=== PATIENT | male | born 1965 | race African-American/Black ===

== ENCOUNTER 2017-12-15 20:55 | Inpatient (IN) | payer OTHER ==
[2017-12-15] MEDS ORDERED: MELATONIN 5 MG TABLETS PO PRN (22:00)
[2017-12-15 22:47] VITALS: BMI 23.3
--- NOTE | 2017-12-15 23:09 | HP ---
CIWA Score - CIWA Score Nausea/Vomitin Muscle Tremors: 4-Moderate,w/Arms Extend Anxiety: 3 Agitation: 3 Paroxysmal Sweats: 1-Minimal Palms Moist Orientation: 1-Uncertain about Date Tacttile Disturbances: 0-None Auditory Disturbances: 0-None Visual Disturbances: 0-None Headache: 2-Mild CIWA-Ar Total Score: 17 Admission ROS S - HPI Chief Complaint: Alcohol withdrawal symptoms Allergies/Adverse Reactions: Allergies Allergy/AdvReac Type Severity Reaction Status Date / Time No Known Allergies Allergy Verified 12/15/17 22:50 History of Present Illness: 52 years old male with 30 years of alcohol dependence is seeking admission to detox. Patient has been to previous detox at [facility] and reports 4 years of sobriety. He has medical history of Pancreatic cancer, HTN, seizures, hypercholesterolemia and depression. He denies suicidal ideation at this time. Exam Limitations: No Limitations - Ebola screening Have you traveled outside of the country in the last 21 days: No Have you had contact with anyone from an Ebola affected area: No Have you been sick,other than usual withdrawal symptoms: No Do you have a fever: No - Review of Systems Constitutional: Chills, Loss of Appetite, Malaise, Night Sweats, Changes in sleep, Weakness EENT: reports: No Symptoms Reported Respiratory: reports: No Symptoms reported Cardiac: reports: No Symptoms Reported GI: reports: Nausea, Poor Appetite, Poor Fluid Intake, Vomiting, Abdominal cramping : reports: No Symptoms Reported Musculoskeletal: reports: Back Pain Integumentary: reports: Dryness, Flushing Neuro: reports: Tingling, Tremors Endocrine: reports: No Symptoms Reported Hematology: reports: No Symptoms Reported Psychiatric: reports: Mood/Affect Appropiate, Anxious Other Systems: Reviewed and Negative Patient History - Patient Medical History Hx Anemia: No Hx Asthma: No Hx Chronic Obstructive Pulmonary Disease (COPD): No Hx Cancer: Yes (Pancreatic Cancer - Not on medication) Hx Cardiac Disorders: No Hx Congestive Heart Failure: No Hx Hypertension: Yes (Diovan ) Hx Hypercholesterolemia: Yes (Not on medication) HX Cerebrovascular Accident: No Hx Seizures: Yes (Not on medication) Hx Diabetes: No Hx Gastrointestinal Disorders: Yes (Gastritis - Prilosec) Hx Liver Disease: No Hx Genitourinary Disorders: No Hx Sexually Transmitted Disorders: No Hx Renal Disease (ESRD): No Hx Thyroid Disease: No Hx Human Immunodeficiency Virus (HIV): No (Negative 2007) Hx Hepatitis C: No Hx Depression: Yes (Not on medication) Hx Suicide Attempt: No (Denies suicidal ideation at this time) Hx Bipolar Disorder: No Hx Schizophrenia: No - Patient Surgical History Past Surgical History: Yes Hx Neurologic Surgery: No Hx Cataract Extraction: No Hx Cardiac Surgery: No Hx Lung Surgery: No Hx Abdominal Surgery: No Hx Appendectomy: No Hx Cholecystectomy: No Hx Genitourinary Surgery: No Hx Section: No Hx Orthopedic Surgery: Yes (LFT KNEE FX- 2017) Other Surgical History: Pancreatic surgery 2011 & 2013 Anesthesia Reaction: No - PPD History Previous Implant?: Yes Documented Results: Negative w/o proof Implanted On Prior [facility] Admission?: No PPD to be Administered?: Yes - Reproductive History Patient is a Female of Child Bearing Age (11 -55 yrs old): No (Male) - Smoking Cessation Smoking history: Current every day smoker Have you smoked in the past 12 months: Yes Aproximately how many cigarettes per day: 10 Hx Chewing Tobacco Use: No Initiated information on smoking cessation: Yes 'Breaking Loose' booklet given: 12/15/17 - Substance & Tx. History Hx Alcohol Use: Yes Hx Substance Use: Yes Substance Use Type: Cocaine Hx Substance Use [facility] - Substances Abused Alcohol Route: Oral Frequency: Daily Amount used: LIQUOR- 2 PINTS Age of first use: 12 Date of Last Use: 12/15/17 Cocaine Route: Smoking Frequency: Daily Amount used: 5 BAGS Age of first use: 24 Date of Last Use: 12/14/17 Family Disease History - Family Disease History Family History: Denies Family Disease History: Heart Disease: Father, Mother Admission Physical Exam BHS - Vital Signs Vital Signs: Vital Signs - 24 hr 12/15/17 22:46 Temperature 97.8 F Pulse Rate 93 H Respiratory 18 Rate Blood Pressure 122/80 - Physical General Appearance: Yes: Moderate Distress, Tremorous, Irritable, Sweating, Anxious HEENTM: Yes: EOMI, Normal ENT Inspection, Normal Voice, FRANCO Respiratory: Yes: Lungs Clear, Normal Breath Sounds, No Respiratory Distress Neck: Yes: Supple Breast: Yes: Breast Exam Deferred Cardiology: Yes: Regular Rhythm, Regular Rate, S1, S2 Abdominal: Yes: Normal Bowel Sounds, Soft Genitourinary: Yes: Within Normal Limits Back: Yes: Normal Inspection Musculoskeletal: Yes: Within Normal Limits Extremities: Yes: Tremors Neurological: Yes: Alert, Normal Mood/Affect Integumentary: Yes: Dry Lymphatic: Yes: Within Normal Limits - Diagnostic (1) Alcohol dependence with uncomplicated withdrawal Current Visit: Yes Status: Chronic (2) Cocaine dependence, uncomplicated Current Visit: Yes Status: Chronic (3) Pancreatic cancer Current Visit: Yes Status: Chronic Qualifiers: Pancreatic malignancy location: unspecified Qualified Code(s): C25.9 - Malignant neoplasm of pancreas, unspecified (4) HTN (hypertension) Current Visit: Yes Status: Chronic Qualifiers: Hypertension type: essential hypertension Qualified Code(s): I10 - Essential (primary) hypertension (5) Seizures Current Visit: Yes Status: Chronic (6) Depression Current Visit: Yes Status: Chronic Qualifiers: Depression Type: unspecified Qualified Code(s): F32.9 - Major depressive disorder, single episode, unspecified (7) Gastritis Current Visit: Yes Status: Chronic Qualifiers: Chronicity: unspecified Cleared for Admission [facility] - Detox or Rehab [facility] Level of Care: Medically Managed Detox Regimen/Protocol: Librium [facility] Breath Alcohol Content Breath Alcohol Content: 0.151 Urine Drug Screen - Results Drug Screen Negative: No Urine Drug Screen Results: [place]-Cocaine
[2017-12-15] MEDS ORDERED: P-EPHED 60MG/TRIPROLIDI 2.5MG TABLET PO PRN (23:23)
[2017-12-15] MEDS ORDERED: MAGNESIUM CITRATE 300 ML BOTTLE PO PRN (23:23)
[2017-12-15] MEDS ORDERED: MENTHOL/PHENOL 1 EACH UD MM PRN (23:23)
[2017-12-15] MEDS ORDERED: ACETAMINOPHEN 325 MG TABLET (FP) PO PRN (23:23)
[2017-12-15] MEDS ORDERED: chlordiazePOXIDE HCL 25 MG CAPSULE PO ONE (23:23)
[2017-12-15] MEDS ORDERED: IBUPROFEN 400 MG TABLET (FP) PO PRN (23:23)
[2017-12-15] MEDS ORDERED: MAG HYDROX/AL HYDROX/SIMETH 30 ML UNIT-DOSE CUP PO PRN (23:23)
[2017-12-15] MEDS ORDERED: chlordiazePOXIDE HCL 25 MG CAPSULE PO PRN (23:23)
[2017-12-15] MEDS ORDERED: guaiFENesin/D-METHORPHAN HB 10 ML UNIT-DOSE CUPS PO PRN (23:23)
[2017-12-15] MEDS ORDERED: NICOTINE POLACRILEX 2 MG GUM BC PRN (23:23)
[2017-12-15] MEDS ORDERED: MAGNESIUM HYDROX 2400MG/30ML ORAL SUSPENSION 30 ML CUP PO PRN (23:23)
[2017-12-15] MEDS ORDERED: LOPERAMIDE HCL 2 MG CAPSULE PO PRN (23:23)
[2017-12-16] MEDS ORDERED: chlordiazePOXIDE HCL 25 MG CAPSULE PO PRN (01:22)
[2017-12-16] MEDS ORDERED: chlordiazePOXIDE HCL 25 MG CAPSULE PO ONE (01:22)
[2017-12-16] MEDS: chlordiazePOXIDE HCL 25 MG CAPSULE PO SCH ×5 (02:32→22:16)
[2017-12-16] MEDS ORDERED: chlordiazePOXIDE HCL 25 MG CAPSULE PO SCH (05:00)
--- NOTE | 2017-12-16 07:34 | CONSULT ---
[facility] Psychiatric Consult - Data Date of interview: 12/16/17 Admission source: [facility] Identifying data: This is 52 years old AA male, devorced, homeless, on SSI, with no psychiatric hospitalization history, chronic alcoholic, is seeking admission for detoxification from Alcohol, Cocaine and Nicotine. Substance Abuse History: Smoking history: Current every day smoker. Have you smoked in the past 12 months: Yes. Aproximately how many cigarettes per day: 10. Hx Chewing Tobacco Use: No. Initiated information on smoking cessation: Yes. 'Breaking Loose' booklet given: 12/15/17. - Substance & Tx. History. Hx Alcohol Use: Yes. Hx Substance Use: Yes. Substance Use Type: Cocaine. Hx Substance Use Treatment: Yes ([facility]). - Substances Abused. Alcohol. Route: Oral. Frequency: Daily. Amount used: LIQUOR- 2 PINTS. Age of first use: 12. Date of Last Use: 12/15/17. Cocaine. Route: Smoking. Frequency: Daily. Amount used: 5 BAGS. Age of first use: 24. Date of Last Use: 12/14/17 Medical History: HTN, Gastritis, Seizure history, Pancreatic Cancer hisotyr, s/ p surgery due to Pancreatic Cancer on 2011 and 2013. Psychiatric History: Patient reports history of depression, reports no medications taking prior to admission, reports insomnia, reports good response to Trazodone 100mg po qhs in the past. Patient denies suicidal and hosmicidal history. Physical/Sexual Abuse/Trauma History: Denies Additional Comment: Observation. Detox Unit Care Protocol Mental Status Exam - Mental Status Exam Alert and Oriented to: Person Cognitive Function: Fair Patient Appearance: Unkempt Mood: Apprehensive Affect: Mood Congruent Patient Behavior: Cooperative Speech Pattern: Appropriate Voice Loudness: Mildly Soft/Quiet Thought Process: Goal Oriented Thought Disorder: Being Controlled Hallucinations: Denies Suicidal Ideation: Denies Homicidal Ideation: Denies Insight/Judgement: Fair Sleep: Difficulty falling asleep Appetite: Weight loss Muscle strength/Tone: Normal Gait/Station: Normal Additional Comments: Observation. Detox Unit Care Protocol Psychiatric Findings - Problem List (Essie 1, 2,3) (1) Drug-induced mood disorder Current Visit: Yes Status: Suspected (2) Alcohol dependence with uncomplicated withdrawal Current Visit: Yes Status: Chronic (3) Cocaine dependence, uncomplicated Current Visit: Yes Status: Chronic (4) Depression Current Visit: Yes Status: Chronic Qualifiers: Depression Type: unspecified Qualified Code(s): F32.9 - Major depressive disorder, single episode, unspecified (5) Nicotine dependence Current Visit: Yes Status: Acute (6) Alcohol induced insomnia Current Visit: Yes Status: Acute - Initial Treatment Plan Initial Treatment Plan: Observation. Detox Unit Care Protocol
[2017-12-16 08:44] LABS: URINE APPEARANCE CLEAR; URINE BILIRUBIN NEGATIVE (<2.0 mg/dL); URINE BLOOD NEGATIVE (NEGATIVE); URINE COLOR STRAW; URINE GLUCOSE (UA) NEGATIVE (NEGATIVE); URINE KETONE NEGATIVE (NEGATIVE); URINE LEUK ESTERASE NEGATIVE (NEGATIVE); URINE NITRITE NEGATIVE (NEGATIVE); URINE PROTEIN NEGATIVE (NEGATIVE); URINE UROBILINOGEN NEGATIVE mg/dL (0.2-1.0)
[2017-12-16] MEDS: LIPASE/PROTEASE/AMYLASE 6,000 UNIT CAPSULE PO SCH ×3 (09:14→17:16)
[2017-12-16] MEDS: PANTOPRAZOLE 20 MG TABLET (FP) PO SCH (09:34)
[2017-12-16] MEDS: PRENATAL VITAMINS W/ FOLIC ACID TABLET (FP) PO SCH (09:34)
[2017-12-16] MEDS ORDERED: PATIENT'S OWN MEDICATION (NON-FORMULARY) (Fluticasone Propionate [Flovent Diskus] 50 MCG) IH SCH (10:00)
[2017-12-16 10:42] LABS: HEMATOCRIT 33.5 % (35.4-49); MCH 30.6 pg (25.7-33.7); MCHC 32.9 g/dl (32.0-35.9); MEAN CELL VOLUME 93.2 fl (80-96); MEAN PLT VOLUME 7.8 fl (7.5-11.1); PLATELET COUNT 182 K/MM3 (134-434); RDW 14.1 % (11.9-15.9)
--- NOTE | 2017-12-16 10:53 | EKG ---
Test Reason : Blood Pressure : / mmHG Vent. Rate : 084 BPM Atrial Rate : 084 BPM P-R Int : 156 ms QRS Dur : 082 ms QT Int : 358 ms P-R-T Axes : 068 046 055 degrees QTc Int : 423 ms NORMAL SINUS RHYTHM SEPTAL INFARCT , AGE UNDETERMINED ABNORMAL ECG NO PREVIOUS ECGS AVAILABLE Confirmed by FLY CRUZ MD ([id number]) on 12/16/2017 10:53:27 AM Referred By: Confirmed By:FLY CRUZ MD
[2017-12-16] MEDS: NICOTINE 14 MG/24 HOURS TOPICAL PATCH TD SCH (10:56)
[2017-12-16 11:03] LABS: ALBUMIN 3.1 g/dl (3.4-5.0); ANION GAP 9 (8-16); BLOOD UREA NITROGEN 10 mg/dL (7-18); CALCIUM 8.3 mg/dL (8.5-10.1); CHLORIDE 110 mmol/L (98-107); CO2 28 mmol/L (21-32); GLUCOSE,RANDOM 76 mg/dL (74-106); SODIUM 147 mmol/L (136-145)
--- NOTE | 2017-12-16 11:03 | PN ---
BHS CIWA - CIWA Score Nausea/Vomitin Muscle Tremors: 3 Anxiety: 3 Agitation: 2 Paroxysmal Sweats: 1-Minimal Palms Moist Orientation: 0-Oriented Tacttile Disturbances: 1-Very Mild Itch/Numbness Auditory Disturbances: 1-Very Mild Visual Disturbances: 0-None Headache: 2-Mild CIWA-Ar Total Score: 16 BHS Progress Note (SOAP) Subjective: ALERT,IRRITABLE,ANXIOUS,INTERRUPTED SLEEP,TREMOR Objective: 12/16/17 11:00 Vital Signs Temperature 97.5 F L 12/16/17 09:18 Pulse Rate 84 12/16/17 09:18 Respiratory Rate 18 12/16/17 09:18 Blood Pressure 139/95 12/16/17 09:18 O2 Sat by Pulse Oximetry (%) EKG NSR PROLONG QT 358/423 12/16/17 11:02 NO CHEST PAIN,NO SOB,NO DIZZINESS Assessment: 12/16/17 11:02 WITHDRAWAL SYMPTOM Plan: CONTINUE DETOX
[2017-12-16 11:08] LABS: ALK PHOS 116 U/L (45-117); BILIRUBIN,TOTAL 0.2 mg/dL (0.2-1.0); SGOT/AST 26 U/L (15-37); SGPT/ALT 32 U/L (12-78); TOT PROT 6.1 g/dl (6.4-8.2)
[2017-12-16] MEDS: MOMETASONE FUROATE 110 MCG/IH INHALER IH SCH (18:08)
[2017-12-16] MEDS: THIAMINE HCL 100 MG TABLET (FP) PO SCH (22:16)
[2017-12-17] MEDS ORDERED: chlordiazePOXIDE 5 MG CAPSULE PO SCH (05:00)
[2017-12-17] MEDS: chlordiazePOXIDE HCL 25 MG CAPSULE PO SCH ×4 (05:30→22:07)
[2017-12-17] MEDS: LIPASE/PROTEASE/AMYLASE 6,000 UNIT CAPSULE PO SCH ×3 (10:59→17:46)
[2017-12-17] MEDS: PANTOPRAZOLE 20 MG TABLET (FP) PO SCH (11:00)
[2017-12-17] MEDS: PRENATAL VITAMINS W/ FOLIC ACID TABLET (FP) PO SCH (11:00)
[2017-12-17] MEDS: NICOTINE 14 MG/24 HOURS TOPICAL PATCH TD SCH (11:00)
[2017-12-17] MEDS: MOMETASONE FUROATE 110 MCG/IH INHALER IH SCH (11:01)
--- NOTE | 2017-12-17 12:41 | PN ---
S CIWA - CIWA Score Nausea/Vomitin Muscle Tremors: 3 Anxiety: 3 Agitation: 3 Paroxysmal Sweats: 1-Minimal Palms Moist Orientation: 0-Oriented Tacttile Disturbances: 1-Very Mild Itch/Numbness Auditory Disturbances: 1-Very Mild Visual Disturbances: 0-None Headache: 2-Mild CIWA-Ar Total Score: 17 BHS Progress Note (SOAP) Subjective: ALERT,IRRITABLE,ANXIOUS,INTERRUPTED SLEEP,TREMOR Objective: 12/17/17 12:39 Vital Signs Temperature 97.5 F L 12/17/17 10:19 Pulse Rate 82 12/17/17 10:19 Respiratory Rate 18 12/17/17 10:19 Blood Pressure 145/98 12/17/17 10:19 O2 Sat by Pulse Oximetry (%) Laboratory Last Values WBC 6.0 K/mm3 (4.0-10.0) 12/16/17 07:00 RBC 3.60 M/mm3 (4.00-5.60) L 12/16/17 07:00 Hgb 11.0 GM/dL (11.7-16.9) L 12/16/17 07:00 Hct 33.5 % (35.4-49) L 12/16/17 07:00 MCV 93.2 fl (80-96) 12/16/17 07:00 MCH 30.6 pg (25.7-33.7) 12/16/17 07:00 MCHC 32.9 g/dl (32.0-35.9) 12/16/17 07:00 RDW 14.1 % (11.9-15.9) 12/16/17 07:00 Plt Count 182 K/MM3 (134-434) 12/16/17 07:00 MPV 7.8 fl (7.5-11.1) 12/16/17 07:00 Sodium 147 mmol/L (136-145) H 12/16/17 07:00 Potassium 4.0 mmol/L (3.5-5.1) 12/16/17 07:00 Chloride 110 mmol/L (98-107) H 12/16/17 07:00 Carbon Dioxide 28 mmol/L (21-32) 12/16/17 07:00 Anion Gap 9 (8-16) 12/16/17 07:00 BUN 10 mg/dL (7-18) 12/16/17 07:00 Creatinine 1.0 mg/dL (0.7-1.3) 12/16/17 07:00 Creat Clearance w eGFR > 60 (>60) 12/16/17 07:00 Random Glucose 76 mg/dL (74-106) 12/16/17 07:00 Calcium 8.3 mg/dL (8.5-10.1) L 12/16/17 07:00 Total Bilirubin 0.2 mg/dL (0.2-1.0) 12/16/17 07:00 AST 26 U/L (15-37) 12/16/17 07:00 ALT 32 U/L (12-78) 12/16/17 07:00 Alkaline Phosphatase 116 U/L (45-117) 12/16/17 07:00 Total Protein 6.1 g/dl (6.4-8.2) L 12/16/17 07:00 Albumin 3.1 g/dl (3.4-5.0) L 12/16/17 07:00 Urine Color Straw 12/15/17 22:00 Urine Appearance Clear 12/15/17 22:00 Urine pH 6.0 (5.0-8.0) 12/15/17 22:00 Ur Specific [place] 1.005 (1.001-1.035) 12/15/17 22:00 Urine Protein Negative (NEGATIVE) 12/15/17 22:00 Urine Glucose (UA) Negative (NEGATIVE) 12/15/17 22:00 Urine Ketones Negative (NEGATIVE) 12/15/17 22:00 Urine Blood Negative (NEGATIVE) 12/15/17 22:00 Urine Nitrite Negative (NEGATIVE) 12/15/17 22:00 Urine Bilirubin Negative (<2.0 mg/dL) 12/15/17 22:00 Urine Urobilinogen Negative mg/dL (0.2-1.0) 12/15/17 22:00 Ur Leukocyte Esterase Negative (NEGATIVE) 12/15/17 22:00 HIV 1&2 Antibody Screen Negative 12/16/17 07:00 HIV P24 Antigen Negative 12/16/17 07:00 12/17/17 12:40 RPR PENDING Assessment: 12/17/17 12:40 WITHDRAWAL SYMPTOM Plan: CONTINUE DETOX
[2017-12-17] MEDS: THIAMINE HCL 100 MG TABLET (FP) PO SCH (22:07)
[2017-12-18] MEDS ORDERED: chlordiazePOXIDE HCL 10 MG CAPSULE PO SCH (05:00)
[2017-12-18] MEDS: chlordiazePOXIDE 5 MG CAPSULE PO SCH ×4 (05:38→22:14)
[2017-12-18] MEDS: MOMETASONE FUROATE 110 MCG/IH INHALER IH SCH (10:13)
[2017-12-18] MEDS: NICOTINE 14 MG/24 HOURS TOPICAL PATCH TD SCH (10:13)
[2017-12-18] MEDS: LIPASE/PROTEASE/AMYLASE 6,000 UNIT CAPSULE PO SCH ×3 (10:13→17:11)
[2017-12-18] MEDS: PANTOPRAZOLE 20 MG TABLET (FP) PO SCH (10:14)
[2017-12-18] MEDS: PRENATAL VITAMINS W/ FOLIC ACID TABLET (FP) PO SCH (10:14)
--- NOTE | 2017-12-18 11:30 | PN ---
S Progress Note (SOAP) Subjective: ALERT,IRRITABLE,INTERRUPTED SLEEP Objective: 12/18/17 11:29 Vital Signs Temperature 97.3 F L 12/18/17 09:59 Pulse Rate 79 12/18/17 09:59 Respiratory Rate 16 12/18/17 09:59 Blood Pressure 134/87 12/18/17 09:59 O2 Sat by Pulse Oximetry (%) Assessment: 12/18/17 11:30 WITHDRAWAL SYMPTOM Plan: CONTINUE DETOX,DISCHARGE IN AM
[2017-12-18] MEDS: THIAMINE HCL 100 MG TABLET (FP) PO SCH (22:14)
[2017-12-19] MEDS ORDERED: chlordiazePOXIDE HCL 10 MG CAPSULE PO SCH (05:00)
--- NOTE | 2017-12-19 09:59 | PN ---
S Progress Note (SOAP) Subjective: ALERT,NO COMPLAINT Objective: Vital Signs Temperature 97.5 F L 12/19/17 06:55 Pulse Rate 79 12/19/17 06:55 Respiratory Rate 18 12/19/17 06:55 Blood Pressure 123/84 12/19/17 06:55 O2 Sat by Pulse Oximetry (%) Assessment: 12/19/17 09:57 DETOX COMPLETED,NO WITHDRAWAL SYMPTOM Plan: DISCHARGE TODAY,FOLLOW UP WITH AFTER CARE PROGRAM ARRANGEMENT
--- NOTE | 2017-12-19 10:04 | DS ---
[facility] Detox Discharge Summary Admission Date: 12/15/17 Discharge Date: 12/19/17 - History Additional Comments: FOLLOW UP WITH AFTER [facility] PROGRAM ARRANGEMENT AND [facility] FOR FOLLOW UP Pertinent Past History: HYPERTENSION SEIZURE GASTRITIS PANCREATIC CANCER - Physical Exam Results Vital Signs: Vital Signs Temperature 97.5 F L 12/19/17 06:55 Pulse Rate 79 12/19/17 06:55 Respiratory Rate 18 12/19/17 06:55 Blood Pressure 123/84 12/19/17 06:55 O2 Sat by Pulse Oximetry (%) Pertinent Admission Physical Exam Findings: WITHDRAWAL SIGNS AND SYMPTOM Vital Signs Temperature 97.5 F L 12/19/17 06:55 Pulse Rate 79 12/19/17 06:55 Respiratory Rate 18 12/19/17 06:55 Blood Pressure 123/84 12/19/17 06:55 O2 Sat by Pulse Oximetry (%) Laboratory Last Values WBC 6.0 K/mm3 (4.0-10.0) 12/16/17 07:00 RBC 3.60 M/mm3 (4.00-5.60) L 12/16/17 07:00 Hgb 11.0 GM/dL (11.7-16.9) L 12/16/17 07:00 Hct 33.5 % (35.4-49) L 12/16/17 07:00 MCV 93.2 fl (80-96) 12/16/17 07:00 MCH 30.6 pg (25.7-33.7) 12/16/17 07:00 MCHC 32.9 g/dl (32.0-35.9) 12/16/17 07:00 RDW 14.1 % (11.9-15.9) 12/16/17 07:00 Plt Count 182 K/MM3 (134-434) 12/16/17 07:00 MPV 7.8 fl (7.5-11.1) 12/16/17 07:00 Sodium 147 mmol/L (136-145) H 12/16/17 07:00 Potassium 4.0 mmol/L (3.5-5.1) 12/16/17 07:00 Chloride 110 mmol/L (98-107) H 12/16/17 07:00 Carbon Dioxide 28 mmol/L (21-32) 12/16/17 07:00 Anion Gap 9 (8-16) 12/16/17 07:00 BUN 10 mg/dL (7-18) 12/16/17 07:00 Creatinine 1.0 mg/dL (0.7-1.3) 12/16/17 07:00 Creat Clearance w eGFR > 60 (>60) 12/16/17 07:00 Random Glucose 76 mg/dL (74-106) 12/16/17 07:00 Calcium 8.3 mg/dL (8.5-10.1) L 12/16/17 07:00 Total Bilirubin 0.2 mg/dL (0.2-1.0) 12/16/17 07:00 AST 26 U/L (15-37) 12/16/17 07:00 ALT 32 U/L (12-78) 12/16/17 07:00 Alkaline Phosphatase 116 U/L (45-117) 12/16/17 07:00 Total Protein 6.1 g/dl (6.4-8.2) L 12/16/17 07:00 Albumin 3.1 g/dl (3.4-5.0) L 12/16/17 07:00 Urine Color Straw 12/15/17 22:00 Urine Appearance Clear 12/15/17 22:00 Urine pH 6.0 (5.0-8.0) 12/15/17 22:00 Ur Specific [place] 1.005 (1.001-1.035) 12/15/17 22:00 Urine Protein Negative (NEGATIVE) 12/15/17 22:00 Urine Glucose (UA) Negative (NEGATIVE) 12/15/17 22:00 Urine Ketones Negative (NEGATIVE) 12/15/17 22:00 Urine Blood Negative (NEGATIVE) 12/15/17 22:00 Urine Nitrite Negative (NEGATIVE) 12/15/17 22:00 Urine Bilirubin Negative (<2.0 mg/dL) 12/15/17 22:00 Urine Urobilinogen Negative mg/dL (0.2-1.0) 12/15/17 22:00 Ur Leukocyte Esterase Negative (NEGATIVE) 12/15/17 22:00 RPR Titer Nonreactive (NONREACTIVE) 12/16/17 07:00 HIV 1&2 Antibody Screen Negative 12/16/17 07:00 HIV P24 Antigen Negative 12/16/17 07:00 - Treatment Hospital Course: Detox Protocol Followed, Detoxed Safely, Responded well, Discharged Condition Good Patient has Accepted a Rehab Referral to: DECLINED - Medication Discharge Medications: Ambulatory Orders Fluticasone Propionate [Flovent Diskus] 50 mcg IH BID 12/15/17 Lipase/Protease/Amylase [Angelaon Dr 6,000 Units Capsule] 2 cap PO TID 12/15/17 Omeprazole 20 mg PO DAILY 12/15/17 Oxycodone HCl 10 mg PO QID 12/15/17 traMADol HCL [Ultram] 50 mg PO Q6H 12/15/17 - Diagnosis (1) Alcohol dependence with uncomplicated withdrawal Current Visit: Yes Status: Chronic (2) Cocaine dependence, uncomplicated Current Visit: Yes Status: Chronic (3) Gastritis Current Visit: Yes Status: Chronic Qualifiers: Chronicity: unspecified (4) Pancreatic cancer Current Visit: Yes Status: Chronic Qualifiers: Pancreatic malignancy location: unspecified Qualified Code(s): C25.9 - Malignant neoplasm of pancreas, unspecified (5) Seizures Current Visit: Yes Status: Chronic - AMA Did Patient Leave Against Medical Advice: No
[2017-12-19 10:46] VITALS: BP 148/99; PULSE 91; TEMP 97.9
== END 2017-12-19 09:48 | disposition home or self-care (01) | DRG 774 ==
LOC: YASAS 20:55 → Y6N 23:08
PROVIDERS: ADMIT Internal Medicine; ATTEND Internal Medicine
PROC: HZ2ZZZZ Detoxification Services for Substance Abuse Treatment (ICD-10-PCS; principal; 2017-12-15)
DX: F10.230 Alcohol dependence with withdrawal, uncomplicated (principal); F14.20 Cocaine dependence, uncomplicated; F17.210 Nicotine dependence, cigarettes, uncomplicated; F19.20 Other psychoactive substance dependence, uncomplicated; F10.282 Alcohol dependence with alcohol-induced sleep disorder; K29.00 Acute gastritis without bleeding; G40.909 Epilepsy, unspecified, not intractable, without status epilepticus; C25.9 Malignant neoplasm of pancreas, unspecified; Z59.0 Homelessness
CPT/HCPCS: 36415; 80053; 81003; 85027; 86593; 87389; 93005; 93010